=== PATIENT | male | born 1950 | race Two or more races ===

== ENCOUNTER 2019-04-01 11:56 | Inpatient (IN) | payer OTHER ==
--- NOTE | 2019-04-01 12:11 | BHS.RME ---
Substance Use & Tx History - Substance Use History Alcohol Substance amount: 3 pints vodka Frequency of use: Daily Substance route: Oral Date of Last Use: 04/01/19 CIWA Nausea/Vomitin-Int. Nausea w/Dry Heave Muscle Tremors: 3 Anxiety: 3 Agitation: 3 Paroxysmal Sweats: 4-Forehead w/Sweat Beads Orientation: 1-Uncertain about Date Tacttile Disturbances: 1-Very Mild Itch/Numbness Auditory Disturbances: 1-Very Mild Visual Disturbances: 4-Moderate Hallucinations Headache: 2-Mild CIWA-Ar Total Score: 26
[2019-04-01 13:02] VITALS: BMI 25.5
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
[2019-04-01] MEDS ORDERED: NICOTINE POLACRILEX 4 MG GUM BUC PRN (14:46)
[2019-04-01] MEDS ORDERED: IBUPROFEN 400 MG TABLET (FP) PO PRN (14:46)
[2019-04-01] MEDS ORDERED: chlordiazePOXIDE HCL 10 MG CAPSULE PO PRN (14:46)
[2019-04-01] MEDS ORDERED: METHOCARBAMOL 500 MG TABLET PO PRN (14:46)
[2019-04-01] MEDS ORDERED: MELATONIN 5 MG TABLETS PO PRN (14:46)
[2019-04-01] MEDS ORDERED: hydrOXYzine PAMOATE 25 MG CAPSULE (FP) PO PRN (14:46)
[2019-04-01] MEDS ORDERED: BISMUTH SUBSALICYLATE 262 MG/15 ML BTL PO PRN (14:46)
[2019-04-01] MEDS ORDERED: MAG HYDROX/AL HYDROX/SIMETH 30 ML UNIT-DOSE CUP PO PRN (14:46)
[2019-04-01] MEDS ORDERED: MENTHOL/PHENOL 1 EACH UD MM PRN (14:46)
[2019-04-01] MEDS ORDERED: MAGNESIUM CITRATE 300 ML BOTTLE PO PRN (14:46)
[2019-04-01] MEDS ORDERED: MAGNESIUM HYDROX 2400MG/30ML ORAL SUSPENSION 30 ML CUP PO PRN (14:46)
[2019-04-01] MEDS ORDERED: ACETAMINOPHEN 325 MG TABLET (FP) PO PRN ×2 (14:46)
[2019-04-01] MEDS: chlordiazePOXIDE HCL 25 MG CAPSULE PO SCH ×2 (15:31→22:26)
[2019-04-01] MEDS ORDERED: INSULIN SLIDING SCALE (NOVOLOG) 1 VIAL SQ ONE (17:01)
[2019-04-01] MEDS: metFORMIN HCL 500 MG TABLET (FP) PO SCH (17:05)
[2019-04-01] MEDS: INSULIN SLIDING SCALE (NOVOLOG) 1 VIAL SQ SCH (17:06)
[2019-04-01] MEDS: THIAMINE HCL 100 MG TABLET (FP) PO SCH (22:26)
[2019-04-02] MEDS: chlordiazePOXIDE HCL 25 MG CAPSULE PO SCH ×3 (05:48→21:11)
[2019-04-02] MEDS: metFORMIN HCL 500 MG TABLET (FP) PO SCH ×2 (07:53→18:04)
[2019-04-02] MEDS: INSULIN SLIDING SCALE (NOVOLOG) 1 VIAL SQ SCH ×2 (07:53→18:05)
[2019-04-02 09:40] LABS: HEMATOCRIT 38.3 % (35.4-49); HEMOGLOBIN 12.9 GM/dL (11.7-16.9); MCH 28.5 pg (25.7-33.7); MCHC 33.7 g/dl (32.0-35.9); MEAN CELL VOLUME 84.6 fl (80-96); MEAN PLT VOLUME 9.1 fl (7.5-11.1); PLATELET COUNT 173 K/MM3 (134-434); RBC 4.53 M/mm3 (4.00-5.60); RDW 13.8 % (11.9-15.9); WHITE BLOOD COUNT 5.3 K/mm3 (4.0-10.0)
[2019-04-02 10:02] LABS: ALBUMIN 3.4 g/dl (3.4-5.0); BILIRUBIN,TOTAL 0.8 mg/dL (0.2-1); BLOOD UREA NITROGEN 18.6 mg/dL (7-18); CALCIUM 8.9 mg/dL (8.5-10.1); CREATININE 1.1 mg/dL (0.55-1.3); POTASSIUM 4.4 mmol/L (3.5-5.1); TOT PROT 6.1 g/dl (6.4-8.2)
[2019-04-02] MEDS: PRENATAL VITAMINS W/ FOLIC ACID TABLET (FP) PO SCH (10:14)
[2019-04-02] MEDS: NICOTINE 21 MG/24 HOURS TOPICAL PATCH TD SCH (10:15)
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
--- NOTE | 2019-04-02 14:16 | PN ---
S CIWA - CIWA Score Nausea/Vomitin-No Nausea/No Vomiting Muscle Tremors: 3 Anxiety: 3 Agitation: 2 Paroxysmal Sweats: 2 Orientation: 0-Oriented Tacttile Disturbances: 2-Mild Itch/Numbness/Burn Auditory Disturbances: 0-None Visual Disturbances: 0-None Headache: 0-None Present CIWA-Ar Total Score: 12 BHS Progress Note (SOAP) Subjective: Anxious, Tremors, Sweating, Fatigue. Patient reports slight improvement in withdrawal symptoms in comparison to time of admission yesterday. Objective: PATIENT A & O X 3, OBSERVED AMBULATING ON DETOX UNIT UNASSISTED. IN NO ACUTE DISTRESS. 04/02/19 14:20 Vital Signs Temperature 98.2 F 04/02/19 12:47 Pulse Rate 85 04/02/19 12:47 Respiratory Rate 16 04/02/19 12:47 Blood Pressure 130/79 04/02/19 12:47 O2 Sat by Pulse Oximetry (%) Laboratory Tests 04/01/19 04/02/19 04/02/19 16:30 05:47 07:00 WBC RBC Hgb Hct MCV MCH MCHC RDW Plt Count MPV Sodium Potassium Chloride Carbon Dioxide Anion Gap BUN Creatinine Est GFR (CKD-EPI)AfAm Est GFR (CKD-EPI)NonAf POC Glucometer 415 318 Random Glucose Calcium Total Bilirubin AST ALT Alkaline Phosphatase Total Protein Albumin RPR Titer HIV 1&2 Antibody Screen Negative HIV P24 Antigen Negative 04/02/19 04/02/19 04/02/19 07:00 07:00 07:00 WBC 5.3 RBC 4.53 Hgb 12.9 Hct 38.3 MCV 84.6 MCH 28.5 MCHC 33.7 RDW 13.8 Plt Count 173 MPV 9.1 Sodium 136 Potassium 4.4 Chloride 102 Carbon Dioxide 28 Anion Gap 7 L BUN 18.6 H Creatinine 1.1 Est GFR (CKD-EPI)AfAm 78.97 Est GFR (CKD-EPI)NonAf 68.13 POC Glucometer Random Glucose 366 H Calcium 8.9 Total Bilirubin 0.8 AST 10 L ALT 23 Alkaline Phosphatase 144 H Total Protein 6.1 L Albumin 3.4 RPR Titer Nonreactive HIV 1&2 Antibody Screen HIV P24 Antigen LABS NOTED. Assessment: 04/02/19 14:21 WITHDRAWAL SYMPTOMS. ELEVATED ALKALINE PHOSPHATASE LEVEL. Plan: CONTINUE DETOX. INCREASE DAILY ORAL WATER INTAKE.
[2019-04-02] MEDS: THIAMINE HCL 100 MG TABLET (FP) PO SCH (21:13)
[2019-04-03] MEDS: metFORMIN HCL 500 MG TABLET (FP) PO SCH ×2 (07:06→16:36)
[2019-04-03] MEDS: chlordiazePOXIDE 5 MG CAPSULE PO SCH ×3 (07:06→22:14)
[2019-04-03] MEDS: INSULIN SLIDING SCALE (NOVOLOG) 1 VIAL SQ SCH ×3 (08:45→23:08)
[2019-04-03] MEDS: PRENATAL VITAMINS W/ FOLIC ACID TABLET (FP) PO SCH (10:29)
[2019-04-03] MEDS: NICOTINE 21 MG/24 HOURS TOPICAL PATCH TD SCH (10:29)
--- NOTE | 2019-04-03 12:53 | PN ---
S CIWA - CIWA Score Nausea/Vomitin-Mild Nausea/No Vomiting Muscle Tremors: 2 Anxiety: 2 Agitation: 2 Paroxysmal Sweats: 3 Orientation: 0-Oriented Tacttile Disturbances: 0-None Auditory Disturbances: 0-None Visual Disturbances: 0-None Headache: 0-None Present CIWA-Ar Total Score: 10 S Progress Note (SOAP) Subjective: Feels ok, anxious, restless. Patient stated he takes insulin at bedtime at home and that he's not getting it here, he doesn't know the name of the insulin or the dosage Objective: 04/03/19 12:49 Last Vital Signs Temp Pulse Resp BP Pulse Ox 96.6 F L 71 16 144/77 04/03/19 09:19 04/03/19 09:19 04/03/19 09:19 04/03/19 09:19 Elevated b/p noted: has htn, not on medication Laboratory Tests 04/01/19 04/02/19 04/02/19 16:30 05:47 07:00 WBC RBC Hgb Hct MCV MCH MCHC RDW Plt Count MPV Sodium Potassium Chloride Carbon Dioxide Anion Gap BUN Creatinine Est GFR (CKD-EPI)AfAm Est GFR (CKD-EPI)NonAf POC Glucometer 415 318 Random Glucose Calcium Total Bilirubin AST ALT Alkaline Phosphatase Total Protein Albumin RPR Titer HIV 1&2 Antibody Screen Negative HIV P24 Antigen Negative 04/02/19 04/02/19 04/02/19 07:00 07:00 07:00 WBC 5.3 RBC 4.53 Hgb 12.9 Hct 38.3 MCV 84.6 MCH 28.5 MCHC 33.7 RDW 13.8 Plt Count 173 MPV 9.1 Sodium 136 Potassium 4.4 Chloride 102 Carbon Dioxide 28 Anion Gap 7 L BUN 18.6 H Creatinine 1.1 Est GFR (CKD-EPI)AfAm 78.97 Est GFR (CKD-EPI)NonAf 68.13 POC Glucometer Random Glucose 366 H Calcium 8.9 Total Bilirubin 0.8 AST 10 L ALT 23 Alkaline Phosphatase 144 H Total Protein 6.1 L Albumin 3.4 RPR Titer Nonreactive HIV 1&2 Antibody Screen HIV P24 Antigen 04/02/19 04/02/19 17:12 21:09 WBC RBC Hgb Hct MCV MCH MCHC RDW Plt Count MPV Sodium Potassium Chloride Carbon Dioxide Anion Gap BUN Creatinine Est GFR (CKD-EPI)AfAm Est GFR (CKD-EPI)NonAf POC Glucometer 498 247 Random Glucose Calcium Total Bilirubin AST ALT Alkaline Phosphatase Total Protein Albumin RPR Titer HIV 1&2 Antibody Screen HIV P24 Antigen Labs reviewed: hyperglycemia Assessment: 04/03/19 12:50 Withdrawal sxs Noted with hyperglycemia and HTN Plan: Continue detox Encouraged PO water intake DMT2 with hyperglycemia: continue sliding scale insulin but changed to TIDAC instead of BIDAC Start insulin levemir 10 units sq qhs Change FS glucose to TIDAC HTN: (has h/o htn, not on medication), start lisinopril 10mg PO daily, monitor b /p
[2019-04-03] MEDS: LISINOPRIL 10 MG TABLET (FP) PO SCH (14:00)
[2019-04-03] MEDS: THIAMINE HCL 100 MG TABLET (FP) PO SCH (22:14)
[2019-04-03] MEDS: INSULIN (LEVEMIR) 100 UNITS/ML UNITS SQ SCH (22:19)
[2019-04-04] MEDS ORDERED: chlordiazePOXIDE HCL 10 MG CAPSULE PO PRN
[2019-04-04] MEDS: chlordiazePOXIDE HCL 10 MG CAPSULE PO SCH ×3 (05:40→22:49)
[2019-04-04] MEDS: metFORMIN HCL 500 MG TABLET (FP) PO SCH ×2 (06:17→17:22)
[2019-04-04] MEDS: INSULIN SLIDING SCALE (NOVOLOG) 1 VIAL SQ SCH ×4 (07:42→22:31)
--- NOTE | 2019-04-04 09:13 | PN ---
[facility] CIWA - CIWA Score Nausea/Vomitin-No Nausea/No Vomiting Muscle Tremors: 1-None Visible, but [place] Anxiety: 2 Agitation: 2 Paroxysmal Sweats: No Perspiration Orientation: 0-Oriented Tacttile Disturbances: 1-Very Mild Itch/Numbness Auditory Disturbances: 0-None Visual Disturbances: 0-None Headache: 1-Very Mild CIWA-Ar Total Score: 7 S Progress Note (SOAP) Subjective: alert,irritable,anxious,interrupted sleep,pain in the body Objective: 04/04/19 09:12 Vital Signs Temperature 97.3 F L 04/04/19 06:20 Pulse Rate 65 04/04/19 06:20 Respiratory Rate 18 04/04/19 06:20 Blood Pressure 109/56 L 04/04/19 06:20 O2 Sat by Pulse Oximetry (%) Laboratory Last Values WBC 5.3 K/mm3 (4.0-10.0) 04/02/19 07:00 RBC 4.53 M/mm3 (4.00-5.60) 04/02/19 07:00 Hgb 12.9 GM/dL (11.7-16.9) 04/02/19 07:00 Hct 38.3 % (35.4-49) 04/02/19 07:00 MCV 84.6 fl (80-96) 04/02/19 07:00 MCH 28.5 pg (25.7-33.7) 04/02/19 07:00 MCHC 33.7 g/dl (32.0-35.9) 04/02/19 07:00 RDW 13.8 % (11.9-15.9) 04/02/19 07:00 Plt Count 173 K/MM3 (134-434) 04/02/19 07:00 MPV 9.1 fl (7.5-11.1) 04/02/19 07:00 Sodium 136 mmol/L (136-145) 04/02/19 07:00 Potassium 4.4 mmol/L (3.5-5.1) 04/02/19 07:00 Chloride 102 mmol/L (98-107) 04/02/19 07:00 Carbon Dioxide 28 mmol/L (21-32) 04/02/19 07:00 Anion Gap 7 MMOL/L (8-16) L 04/02/19 07:00 BUN 18.6 mg/dL (7-18) H 04/02/19 07:00 Creatinine 1.1 mg/dL (0.55-1.3) 04/02/19 07:00 Est GFR (CKD-EPI)AfAm 78.97 04/02/19 07:00 Est GFR (CKD-EPI)NonAf 68.13 04/02/19 07:00 POC Glucometer 243 UNITS (80-120) 04/04/19 05:37 Random Glucose 366 mg/dL (74-106) H 04/02/19 07:00 Calcium 8.9 mg/dL (8.5-10.1) 04/02/19 07:00 Total Bilirubin 0.8 mg/dL (0.2-1) 04/02/19 07:00 AST 10 U/L (15-37) L 04/02/19 07:00 ALT 23 U/L (13-61) 04/02/19 07:00 Alkaline Phosphatase 144 U/L (45-117) H 04/02/19 07:00 Total Protein 6.1 g/dl (6.4-8.2) L 04/02/19 07:00 Albumin 3.4 g/dl (3.4-5.0) 04/02/19 07:00 RPR Titer Nonreactive (NONREACTIVE) 04/02/19 07:00 HIV 1&2 Antibody Screen Negative 04/02/19 07:00 HIV P24 Antigen Negative 04/02/19 07:00 Assessment: 04/04/19 09:13 withdrawal symptom Plan: continue detox librium regimen,bgm monitoring,discharge in am
--- NOTE | 2019-04-04 10:09 | EKG ---
Test Reason : Blood Pressure : / mmHG Vent. Rate : 087 BPM Atrial Rate : 087 BPM P-R Int : 156 ms QRS Dur : 090 ms QT Int : 358 ms P-R-T Axes : 057 042 040 degrees QTc Int : 430 ms NORMAL SINUS RHYTHM MODERATE VOLTAGE CRITERIA FOR LVH, MAY BE NORMAL VARIANT BORDERLINE ECG NO PREVIOUS ECGS AVAILABLE Confirmed by Justin Morales ([id number]) on 04/04/2019 10:09:26 AM Referred By: LINDA HODGES Confirmed By:Justin Morales
--- NOTE | 2019-04-04 10:09 | EKG ---
Test Reason : Blood Pressure : / mmHG Vent. Rate : 071 BPM Atrial Rate : 071 BPM P-R Int : 148 ms QRS Dur : 098 ms QT Int : 390 ms P-R-T Axes : 061 047 037 degrees QTc Int : 423 ms NORMAL SINUS RHYTHM MINIMAL VOLTAGE CRITERIA FOR LVH, MAY BE NORMAL VARIANT EARLY REPOLARIZATION BORDERLINE ECG WHEN COMPARED WITH ECG OF 01-APR-2019 23:18, NO SIGNIFICANT CHANGE WAS FOUND Confirmed by Justin Morales ([id number]) on 04/04/2019 10:09:16 AM Referred By: Confirmed By:Justin Morales
[2019-04-04] MEDS: NICOTINE 21 MG/24 HOURS TOPICAL PATCH TD SCH (10:14)
[2019-04-04] MEDS: PRENATAL VITAMINS W/ FOLIC ACID TABLET (FP) PO SCH (10:14)
[2019-04-04] MEDS: LISINOPRIL 10 MG TABLET (FP) PO SCH (10:14)
[2019-04-04] MEDS: INSULIN (LEVEMIR) 100 UNITS/ML UNITS SQ SCH (22:49)
[2019-04-04] MEDS: THIAMINE HCL 100 MG TABLET (FP) PO SCH (22:50)
[2019-04-05] MEDS ORDERED: chlordiazePOXIDE HCL 10 MG CAPSULE PO ONE (05:00)
[2019-04-05] MEDS: metFORMIN HCL 500 MG TABLET (FP) PO SCH (06:00)
[2019-04-05] MEDS: INSULIN SLIDING SCALE (NOVOLOG) 1 VIAL SQ SCH (07:28)
--- NOTE | 2019-04-05 08:17 | PN ---
[facility] CIWA - CIWA Score Nausea/Vomitin-No Nausea/No Vomiting Muscle Tremors: 1-None Visible, but [place] Anxiety: 0-No Anxiety, at Ease Agitation: 0-Normal Activity Paroxysmal Sweats: No Perspiration Orientation: 0-Oriented Tacttile Disturbances: 0-None Auditory Disturbances: 0-None Visual Disturbances: 0-None Headache: 0-None Present CIWA-Ar Total Score: 1 S Progress Note (SOAP) Subjective: alert,no complaint Objective: 04/05/19 08:14 Vital Signs Temperature 97.7 F 04/05/19 05:15 Pulse Rate 71 04/05/19 05:15 Respiratory Rate 18 04/05/19 05:15 Blood Pressure 144/65 04/05/19 05:15 O2 Sat by Pulse Oximetry (%) 04/05/19 08:14 bgm 249 Assessment: 04/05/19 08:14 detox completed,no withdrawal symptom 04/05/19 08:15 Plan: discharge today,follow up with after care program as arrangement and medical provider for medical problem
--- NOTE | 2019-04-05 08:27 | DS ---
[facility] Detox Discharge Summary Admission Date: 04/01/19 Discharge Date: 04/05/19 - History Present History: Alcohol Dependence, Cannabis Dependence Additional Comments: alert,oriented x 3 heart normal heart sound lung clear,no wheezing abdomen soft,no distension,no pain stable for discharge patient will go to [facility] rehab total discharge 35 mins Pertinent Past History: type 2 dm depression - Physical Exam Results Vital Signs: Vital Signs Temperature 97.7 F 04/05/19 05:15 Pulse Rate 71 04/05/19 05:15 Respiratory Rate 18 04/05/19 05:15 Blood Pressure 144/65 04/05/19 05:15 O2 Sat by Pulse Oximetry (%) Pertinent Admission Physical Exam Findings: withdrawal signs and symptom Laboratory Last Values WBC 5.3 K/mm3 (4.0-10.0) 04/02/19 07:00 RBC 4.53 M/mm3 (4.00-5.60) 04/02/19 07:00 Hgb 12.9 GM/dL (11.7-16.9) 04/02/19 07:00 Hct 38.3 % (35.4-49) 04/02/19 07:00 MCV 84.6 fl (80-96) 04/02/19 07:00 MCH 28.5 pg (25.7-33.7) 04/02/19 07:00 MCHC 33.7 g/dl (32.0-35.9) 04/02/19 07:00 RDW 13.8 % (11.9-15.9) 04/02/19 07:00 Plt Count 173 K/MM3 (134-434) 04/02/19 07:00 MPV 9.1 fl (7.5-11.1) 04/02/19 07:00 Sodium 136 mmol/L (136-145) 04/02/19 07:00 Potassium 4.4 mmol/L (3.5-5.1) 04/02/19 07:00 Chloride 102 mmol/L (98-107) 04/02/19 07:00 Carbon Dioxide 28 mmol/L (21-32) 04/02/19 07:00 Anion Gap 7 MMOL/L (8-16) L 04/02/19 07:00 BUN 18.6 mg/dL (7-18) H 04/02/19 07:00 Creatinine 1.1 mg/dL (0.55-1.3) 04/02/19 07:00 Est GFR (CKD-EPI)AfAm 78.97 04/02/19 07:00 Est GFR (CKD-EPI)NonAf 68.13 04/02/19 07:00 POC Glucometer 249 UNITS (80-120) 04/05/19 05:58 Random Glucose 366 mg/dL (74-106) H 04/02/19 07:00 Calcium 8.9 mg/dL (8.5-10.1) 04/02/19 07:00 Total Bilirubin 0.8 mg/dL (0.2-1) 04/02/19 07:00 AST 10 U/L (15-37) L 04/02/19 07:00 ALT 23 U/L (13-61) 04/02/19 07:00 Alkaline Phosphatase 144 U/L (45-117) H 04/02/19 07:00 Total Protein 6.1 g/dl (6.4-8.2) L 04/02/19 07:00 Albumin 3.4 g/dl (3.4-5.0) 04/02/19 07:00 RPR Titer Nonreactive (NONREACTIVE) 04/02/19 07:00 HIV 1&2 Antibody Screen Negative 04/02/19 07:00 HIV P24 Antigen Negative 04/02/19 07:00 Vital Signs Temperature 97.7 F 04/05/19 05:15 Pulse Rate 71 04/05/19 05:15 Respiratory Rate 18 04/05/19 05:15 Blood Pressure 144/65 04/05/19 05:15 O2 Sat by Pulse Oximetry (%) - Treatment Hospital Course: Detox Protocol Followed, Detoxed Safely, Responded well, Discharged Condition Good, Rehab Referral Accepted Patient has Accepted a Rehab Referral to: [facility] - Medication Discharge Medications: Ambulatory Orders Metformin HCl [Glucophage] 500 mg PO BID 05/27/11 Lurasidone HCl [Latuda -] 20 mg PO DAILY 04/01/19 - Diagnosis (1) Alcohol dependence with uncomplicated withdrawal Current Visit: Yes Status: Acute (2) DM (diabetes mellitus) Current Visit: Yes Status: Acute (3) Depression Current Visit: Yes Status: Acute (4) HTN (hypertension) Current Visit: Yes Status: Acute (5) Cocaine use disorder Current Visit: Yes Status: Chronic (6) Nicotine dependence Current Visit: Yes Status: Chronic - AMA Did Patient Leave Against Medical Advice: No
[2019-04-05 09:39] VITALS: BP 114/55; PULSE 72; TEMP 96.9
--- NOTE | 2019-04-05 09:39 | PN ---
[facility] Progress Note Note: addendum patient will go home and go to [facility] tomorrow for rehab
== END 2019-04-05 09:53 | disposition home or self-care (01) | DRG 774 ==
LOC: YASAS 11:56 → Y6N 13:51
PROVIDERS: ADMIT Allergy & Immunology; ATTEND Allergy & Immunology
PROC: HZ2ZZZZ Detoxification Services for Substance Abuse Treatment (ICD-10-PCS; principal; 2019-04-01)
DX: F10.230 Alcohol dependence with withdrawal, uncomplicated (principal); F14.20 Cocaine dependence, uncomplicated; F12.20 Cannabis dependence, uncomplicated; F17.210 Nicotine dependence, cigarettes, uncomplicated; F19.24 Other psychoactive substance dependence with psychoactive substance-induced mood disorder; F32.9 Major depressive disorder, single episode, unspecified; I10 Essential (primary) hypertension; E11.65 Type 2 diabetes mellitus with hyperglycemia; Z79.4 Long term (current) use of insulin; M17.11 Unilateral primary osteoarthritis, right knee; Z91.5 Personal history of self-harm; Z98.890 Other specified postprocedural states; Z59.0 Homelessness
CPT/HCPCS: 36415; 80053; 82962; 85027; 86593; 87389; 93005; 93010

== ENCOUNTER 2020-11-10 13:01 | Inpatient (IN) | payer OTHER ==
[2020-11-10 16:42] VITALS: BMI 25.7
[2020-11-10] MEDS ORDERED: IBUPROFEN 400 MG TABLET (FP) PO PRN (17:28)
[2020-11-10] MEDS ORDERED: MAGNESIUM CITRATE 300 ML BOTTLE PO PRN (17:28)
[2020-11-10] MEDS ORDERED: ONDANSETRON *ODT* 4 MG TABLET SL PRN (17:28)
[2020-11-10] MEDS ORDERED: MENTHOL/PHENOL 1 EACH UD MM PRN (17:28)
[2020-11-10] MEDS ORDERED: ACETAMINOPHEN 325 MG TABLET (FP) PO PRN ×2 (17:28)
[2020-11-10] MEDS ORDERED: NICOTINE 10 MG CARTRIDGE (INHALER) IH PRN (17:28)
[2020-11-10] MEDS ORDERED: MAGNESIUM HYDROX 2400MG/30ML ORAL SUSPENSION 30 ML CUP PO PRN (17:28)
[2020-11-10] MEDS ORDERED: BISMUTH SUBSALICYLATE 524 MG/30 ML PO PRN (17:28)
[2020-11-10] MEDS ORDERED: LORazepam 1 MG TABLET PO PRN (17:28)
[2020-11-10] MEDS ORDERED: METHOCARBAMOL 500 MG TABLET PO PRN (17:28)
[2020-11-10] MEDS ORDERED: MAG HYDROX/AL HYDROX/SIMETH 30 ML UNIT-DOSE CUP PO PRN (17:28)
[2020-11-10] MEDS ORDERED: hydrOXYzine PAMOATE 25 MG CAPSULE (FP) PO ONE (18:30)
[2020-11-10] MEDS ORDERED: LORazepam 1 MG TABLET ONE (18:31)
[2020-11-10] MEDS: hydrOXYzine PAMOATE 25 MG CAPSULE (FP) PO SCH ×2 (18:35→22:34)
[2020-11-10] MEDS ORDERED: MAG HYDROX/AL HYDROX/SIMETH 30 ML UNIT-DOSE CUP ONE (18:56)
[2020-11-10] MEDS: MELATONIN 5 MG TABLETS PO SCH (22:33)
[2020-11-10] MEDS: LORazepam 2 MG TABLET PO SCH (22:34)
[2020-11-10] MEDS: THIAMINE HCL 100 MG TABLET (FP) PO SCH (22:34)
[2020-11-11] MEDS: LORazepam 2 MG TABLET PO SCH ×4 (05:47→22:21)
[2020-11-11] MEDS: hydrOXYzine PAMOATE 25 MG CAPSULE (FP) PO SCH ×3 (05:47→13:30)
[2020-11-11] MEDS: metFORMIN HCL 500 MG TABLET (FP) PO SCH ×2 (06:56→17:49)
[2020-11-11 10:34] LABS: HEMATOCRIT 35.7 % (35.4-49); MCH 29.5 pg (25.7-33.7); MCHC 33.7 g/dl (32.0-35.9); MEAN CELL VOLUME 87.5 fl (80-96); MEAN PLT VOLUME 8.9 fl (7.5-11.1); PLATELET COUNT 179 10^3/uL (134-434); RBC 4.08 M/mm3 (4.00-5.60); RDW 13.7 % (11.9-15.9)
[2020-11-11 10:50] LABS: BILIRUBIN,TOTAL 0.7 mg/dL (0.2-1)
[2020-11-11 10:53] LABS: CALCIUM 8.5 mg/dL (8.5-10.1)
[2020-11-11 10:54] LABS: ALBUMIN 3.2 g/dl (3.4-5.0); BLOOD UREA NITROGEN 20.5 mg/dL (7-18)
[2020-11-11 10:58] LABS: TOT PROT 6.1 g/dl (6.4-8.2)
[2020-11-11] MEDS: PRENATAL VITAMINS W/ FOLIC ACID TABLET (FP) PO SCH (11:08)
[2020-11-11] MEDS: THIAMINE HCL 100 MG TABLET (FP) PO SCH (22:21)
[2020-11-11] MEDS: MELATONIN 5 MG TABLETS PO SCH (22:21)
[2020-11-12] MEDS: metFORMIN HCL 500 MG TABLET (FP) PO SCH (06:05)
[2020-11-12] MEDS: LORazepam 1 MG TABLET PO SCH ×2 (06:05→10:25)
[2020-11-12] MEDS ORDERED: amLODIPine BESYLATE 5 MG TABLET (FP) PO SCH (10:00)
[2020-11-12] MEDS ORDERED: LURASIDONE HCL 20 MG TABLET PO SCH (10:00)
[2020-11-12] MEDS: PRENATAL VITAMINS W/ FOLIC ACID TABLET (FP) PO SCH (10:25)
[2020-11-12 12:56] VITALS: BP 137/75; PULSE 85; TEMP 97.3
[2020-11-12] MEDS ORDERED: INSULIN SLIDING SCALE (NOVOLOG) 1 VIAL SQ SCH (16:30)
[2020-11-13] MEDS ORDERED: LORazepam 0.5 MG TABLET PO PRN
[2020-11-13] MEDS ORDERED: LORazepam 0.5 MG TABLET PO SCH (05:00)
[2020-11-14] MEDS ORDERED: LORazepam 0.5 MG TABLET PO ONE (05:00)
== END 2020-11-12 16:41 | disposition left against medical advice (07) | DRG 770 ==
LOC: YASAS 13:01 → Y6N 18:38
PROVIDERS: ADMIT Allergy & Immunology; ATTEND Allergy & Immunology
PROC: HZ2ZZZZ Detoxification Services for Substance Abuse Treatment (ICD-10-PCS; principal; 2020-11-10)
DX: F10.230 Alcohol dependence with withdrawal, uncomplicated (principal); F17.210 Nicotine dependence, cigarettes, uncomplicated; F25.9 Schizoaffective disorder, unspecified; F10.282 Alcohol dependence with alcohol-induced sleep disorder; I10 Essential (primary) hypertension; E11.9 Type 2 diabetes mellitus without complications; Z79.84 Long term (current) use of oral hypoglycemic drugs; M17.11 Unilateral primary osteoarthritis, right knee; M54.50 Low back pain, unspecified; G89.29 Other chronic pain; Z99.89 Dependence on other enabling machines and devices; Z59.01 Sheltered homelessness
CPT/HCPCS: 36415; 80053; 82140; 82962; 83036; 84520; 85027; 86780; C9803; U0003; U0005

== ENCOUNTER 2021-01-17 11:55 | Inpatient (IN) | payer OTHER ==
[2021-01-17] MEDS ORDERED: BISMUTH SUBSALICYLATE 524 MG/30 ML PO PRN (12:34)
[2021-01-17] MEDS ORDERED: chlordiazePOXIDE HCL 25 MG CAPSULE PO PRN (12:34)
[2021-01-17] MEDS ORDERED: IBUPROFEN 400 MG TABLET (FP) PO PRN (12:34)
[2021-01-17] MEDS ORDERED: ACETAMINOPHEN 325 MG TABLET (FP) PO PRN ×2 (12:34)
[2021-01-17] MEDS ORDERED: NICOTINE 10 MG CARTRIDGE (INHALER) IH PRN (12:34)
[2021-01-17] MEDS ORDERED: MAGNESIUM HYDROX 2400MG/30ML ORAL SUSPENSION 30 ML CUP PO PRN (12:34)
[2021-01-17] MEDS ORDERED: ONDANSETRON *ODT* 4 MG TABLET SL PRN (12:34)
[2021-01-17] MEDS ORDERED: MAGNESIUM CITRATE 300 ML BOTTLE PO PRN (12:34)
[2021-01-17] MEDS ORDERED: MENTHOL/PHENOL 1 EACH UD MM PRN (12:34)
[2021-01-17] MEDS ORDERED: MAG HYDROX/AL HYDROX/SIMETH 30 ML UNIT-DOSE CUP PO PRN (12:34)
[2021-01-17 17:04] VITALS: BMI 25.7
[2021-01-17] MEDS: hydrOXYzine PAMOATE 25 MG CAPSULE (FP) PO SCH ×3 (18:20→23:28)
[2021-01-17] MEDS: metFORMIN HCL 500 MG TABLET (FP) PO SCH (19:33)
[2021-01-17] MEDS: amLODIPine BESYLATE 5 MG TABLET (FP) PO SCH (19:33)
[2021-01-17] MEDS: PRENATAL VITAMINS W/ FOLIC ACID TABLET (FP) PO SCH (19:34)
[2021-01-17] MEDS: chlordiazePOXIDE HCL 25 MG CAPSULE PO SCH ×2 (19:37→23:28)
[2021-01-17] MEDS: MELATONIN 5 MG TABLETS PO SCH (23:28)
[2021-01-17] MEDS: THIAMINE HCL 100 MG TABLET (FP) PO SCH (23:28)
[2021-01-17] MEDS: INSULIN SLIDING SCALE (NOVOLOG) 1 VIAL SQ SCH (23:29)
[2021-01-17] MEDS ORDERED: INSULIN (NOVOLOG) ASPART 100 UNITS/ML 10ML VIAL ONE (23:31)
[2021-01-18] MEDS: hydrOXYzine PAMOATE 25 MG CAPSULE (FP) PO SCH ×5 (05:28→23:10)
[2021-01-18] MEDS: chlordiazePOXIDE HCL 25 MG CAPSULE PO SCH ×4 (05:28→23:10)
[2021-01-18] MEDS: metFORMIN HCL 500 MG TABLET (FP) PO SCH ×2 (06:21→16:50)
[2021-01-18] MEDS: INSULIN SLIDING SCALE (NOVOLOG) 1 VIAL SQ SCH ×3 (06:22→16:51)
[2021-01-18] MEDS: METHOCARBAMOL 500 MG TABLET PO PRN (10:04)
[2021-01-18] MEDS: PRENATAL VITAMINS W/ FOLIC ACID TABLET (FP) PO SCH (10:04)
[2021-01-18] MEDS ORDERED: INSULIN (NOVOLOG) ASPART 100 UNITS/ML 10ML VIAL ONE ×2 (11:33→16:47)
[2021-01-18] MEDS: amLODIPine BESYLATE 5 MG TABLET (FP) PO SCH (11:49)
[2021-01-18] MEDS: LURASIDONE HCL 20 MG TABLET PO SCH (13:40)
[2021-01-18] MEDS: THIAMINE HCL 100 MG TABLET (FP) PO SCH (23:10)
[2021-01-18] MEDS: MELATONIN 5 MG TABLETS PO SCH (23:10)
[2021-01-19] MEDS: INSULIN SLIDING SCALE (NOVOLOG) 1 VIAL SQ SCH ×3 (00:36→12:33)
[2021-01-19] MEDS: chlordiazePOXIDE HCL 25 MG CAPSULE PO SCH ×2 (05:05→10:13)
[2021-01-19] MEDS: hydrOXYzine PAMOATE 25 MG CAPSULE (FP) PO SCH ×2 (05:06→10:13)
[2021-01-19] MEDS: metFORMIN HCL 500 MG TABLET (FP) PO SCH (08:09)
[2021-01-19 09:17] VITALS: BP 146/50; PULSE 75; TEMP 97.1
[2021-01-19] MEDS: PRENATAL VITAMINS W/ FOLIC ACID TABLET (FP) PO SCH (10:13)
[2021-01-19] MEDS: METHOCARBAMOL 500 MG TABLET PO PRN (10:14)
[2021-01-19] MEDS: LURASIDONE HCL 20 MG TABLET PO SCH (10:14)
[2021-01-19] MEDS: amLODIPine BESYLATE 5 MG TABLET (FP) PO SCH (12:33)
[2021-01-20] MEDS ORDERED: chlordiazePOXIDE HCL 10 MG CAPSULE PO PRN
[2021-01-20] MEDS ORDERED: chlordiazePOXIDE HCL 10 MG CAPSULE PO SCH (05:00)
[2021-01-21] MEDS ORDERED: chlordiazePOXIDE HCL 10 MG CAPSULE PO SCH (05:00)
[2021-01-22] MEDS ORDERED: chlordiazePOXIDE HCL 10 MG CAPSULE PO ONE (05:00)
== END 2021-01-19 12:56 | disposition left against medical advice (07) | DRG 770 ==
LOC: YASAS 11:55 → Y6N 17:16
PROVIDERS: ADMIT Allergy & Immunology; ATTEND Allergy & Immunology
PROC: HZ2ZZZZ Detoxification Services for Substance Abuse Treatment (ICD-10-PCS; principal; 2021-01-17)
DX: F10.230 Alcohol dependence with withdrawal, uncomplicated (principal); F14.20 Cocaine dependence, uncomplicated; F17.210 Nicotine dependence, cigarettes, uncomplicated; F20.9 Schizophrenia, unspecified; I10 Essential (primary) hypertension; E11.9 Type 2 diabetes mellitus without complications; E78.5 Hyperlipidemia, unspecified; M17.11 Unilateral primary osteoarthritis, right knee; M54.59 Other low back pain; G89.29 Other chronic pain; Z79.4 Long term (current) use of insulin; Z79.84 Long term (current) use of oral hypoglycemic drugs; Z62.810 Personal history of physical and sexual abuse in childhood; Z91.51 Personal history of suicidal behavior; Z56.0 Unemployment, unspecified; Z59.01 Sheltered homelessness
CPT/HCPCS: 82962; C9803; U0003; U0005